=== PATIENT | female | born 1965 | race African-American/Black ===

== ENCOUNTER 2016-10-05 16:23 | Emergency (ER) | payer MEDICARE, MEDICAID ==
[~2016-10-05] VITALS: Ht 157.5 cm; Wt 105.7 kg
[2016-10-05 17:02] LABS: DEFINITIVE VIEW TRANSMISSION; Hemoglobin 10.1 g/dL (12.2-16.2); Neutrophils # (auto) 5.3 uL
[2016-10-05 17:07] LABS: Basophils # (auto) 0.2 uL; Basophils % (auto) 2.2 % (0.0-2.0); Eosinophils # (auto) 0.3 uL; Eosinophils % (auto) 3.1 % (0.0-7.0); Hematocrit 32.3 % (36.0-46.0); Lymphocytes # (auto) 2.7 uL; Lymphocytes % (auto) 29.4 % (10.0-50.0); Mean Corpuscular Hemoglobin 22.5 pg (28.0-32.0); Mean Corpuscular Hgb Conc. 31.1 g/dL (32.0-36.0); Mean Corpuscular Volume 72.1 fL (80.0-100.0); Mean Platelet Volume 9.7 fL (7.4-10.4); Monocytes # (auto) 0.7 uL; Monocytes % (auto) 7.6 % (0.0-12.0); Neutrophils % (auto) 57.7 % (37.0-80.0); Platelet Count (auto) 280 10^3/uL (140-450); Red Cell Distribution Width 19.8 % (11.6-16.0); White Blood Cell 9.2 10^3/uL (4.4-10.8)
[2016-10-05 17:11] LABS: Albumin 3.4 g/dL (3.4-5.0); Anion Gap 10 (5-15); Aspartate Aminotransferase 10 U/L (15-37); BUN/Creatinine Ratio 13.2; Blood Urea Nitrogen 12 mg/dL (7-18); Calcium 8.6 mg/dL (8.5-10.1); Carbon Dioxide 23 mmol/L (21-32); Chloride 107 mmol/L (98-107); GFR African American 83 mL/min; GFR Non-African American 69 mL/min; Glucose 92 mg/dL (74-106); Magnesium 2.2 mg/dL (1.6-2.6); Potassium 3.5 mmol/L (3.5-5.1); Sodium 140 mmol/L (136-145)
[2016-10-05 17:16] LABS: Alkaline Phosphatase 69 U/L (45-117); Bilirubin, Total 0.2 mg/dL (0.2-1.0); Total Protein 7.3 g/dL (6.4-8.2)
[2016-10-05 17:46] LABS: Anisocytosis Moderate; Platelet Estimate Adequate
[2016-10-05 17:47] LABS: Hypochromia Moderate; Large Platelets FEW; Microcytosis Slight; Ovalocytes FEW
[2016-10-05 19:15] LABS: Urine Bilirubin Negative (Negative); Urine Blood Negative /uL (Negative); Urine Color Colorless (Yellow); Urine Glucose Normal (Normal); Urine Ketone Negative (Negative); Urine Nitrite Negative (Negative); Urine RBC <1 /hpf (0 - 4); Urine Squamous Epithelial Cell FEW /hpf (<5); Urine Urobilinogen Normal (Negative); Urine pH 5.5 (5.0-8.0)
[2016-10-05] MEDS ORDERED: LORazepam 0.5 MG TAB PO ONE (22:00)
[2016-10-06 00:09] VITALS: BP 166/83
== END 2016-10-06 00:11 | disposition home or self-care (01) ==
LOC: ER 16:27
DX: D53.9 Nutritional anemia, unspecified (principal); R06.4 Hyperventilation; R05 Cough; R42 Dizziness and giddiness; R06.02 Shortness of breath; J45.909 Unspecified asthma, uncomplicated; E11.9 Type 2 diabetes mellitus without complications; I10 Essential (primary) hypertension
CPT/HCPCS: 36415; 36600; 70450; 80053; 81001; 82805; 83735; 84484; 85025; 93005